=== PATIENT | male | born 1995 | race Hispanic/Latino ===

== ENCOUNTER 2019-06-27 00:28 | Emergency (ER) | payer SELFPAY ==
[2019-06-27 00:39] VITALS: BP 126/69
== END 2019-06-27 01:30 | disposition left against medical advice (07) ==
LOC: ED 00:28
DX: S01.81XA Laceration without foreign body of other part of head, initial encounter (principal); Z53.21 Procedure and treatment not carried out due to patient leaving prior to being seen by health care provider; W55.29XA Other contact with cow, initial encounter; Y93.89 Activity, other specified; Y92.89 Other specified places as the place of occurrence of the external cause; Y99.8 Other external cause status

== ENCOUNTER 2021-01-09 15:45 | Emergency (ER) | payer OTHER ==
[2021-01-09 15:53] VITALS: BP 146/90
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
== END 2021-01-09 17:49 | disposition home or self-care (01) ==
LOC: ED 15:45
DX: M79.645 Pain in left finger(s) (principal); V89.2XXA Person injured in unspecified motor-vehicle accident, traffic, initial encounter; M54.5 Low back pain; Y93.89 Activity, other specified; Y92.89 Other specified places as the place of occurrence of the external cause; Y99.8 Other external cause status
CPT/HCPCS: 72100; 99283

== ENCOUNTER 2021-03-15 16:09 | Emergency (ER) | payer SELFPAY ==
--- NOTE | 2021-03-15 17:17 | Emergency Department Report ---
ED General Adult HPI - General Chief complaint: Medical Clearance Stated complaint: Medical clearance PUI?: No Time Seen by Provider: 03/15/21 17:09 Source: patient, EMS ( EMS documentation not available at time of chart dictation ), RN notes reviewed, old records reviewed Mode of arrival: Ambulatory Limitations: No Limitations - History of Present Illness Initial comments: The patient is a 25-year-old gentleman. He is not known to myself previously. The patient presents to the ER today for medical clearance. He reports that he was consuming moonshine last night and this morning, and felt like his throat was closing in. This is now resolved. The moonshine is from a home distillery. The patient states that he feels better now. The patient denies all physical complaints at this time. The patient states he is not homicidal or suicidal. The patient is asking to be discharged. Patient denies travel, surgery, imm obilization, leg pain, leg swelling, DVT/PE risk factors -: Sudden Location: mouth Severity scale (0 -10): 0 Consistency: intermittent Improves with: none Worsens with: none Associated Symptoms: denies other symptoms - Related Data Home Medications Medication Instructions Recorded Confirmed Last Taken Dextromethorphan HBr [Cough Relief] 10 ml PO PRN 04/16/13 04/16/13 04/16/13 21:00 Previous Rx's Medication Instructions Recorded Last Taken Type Albuterol Mdi (or & Nicu Only) 2 puff IH QID PRN #1 inh 04/17/13 Unknown Rx [ProAir HFA Inhaler] Azithromycin [Zithromax Z-POOL] 500 mg PO ONCE #6 tablet 04/17/13 Unknown Rx Guaifenesin/Codeine Phosphate 10 ml PO Q4-6H PRN #4 oz 04/17/13 Unknown Rx [Cheratussin AC Syrup] Prednisone 60 mg PO QDAY #9 tablet 04/17/13 Unknown Rx Amoxicillin [Trimox CAP] 500 mg PO Q8H #30 capsule 12/25/13 Unknown Rx Promethazine Dm (Nf) [Phenergan Dm 5 ml PO Q6H PRN #120 ml 12/25/13 Unknown Rx 6.25/15 mg 5 ml] predniSONE [Deltasone] 20 mg PO BID #8 tab 12/25/13 Unknown Rx Naproxen 375 mg PO BID #14 tablet 01/09/21 Unknown Rx methOCARBAMOL [Robaxin TAB] 500 mg PO BID PRN #14 tab 01/09/21 Unknown Rx Allergies Allergy/AdvReac Type Severity Reaction Status Date / Time No Known Allergies Allergy Verified 01/09/21 15:49 ED Review of Systems ROS: Stated complaint: alcohol Other details as noted in HPI Comment: All other systems reviewed and negative (Patient denies all symptoms at this time.) ED Past Medical Hx - Past Medical History Previous Medical History?: No - Surgical History Past Surgical History?: No - Social History Smoking Status: Never Smoker Substance Use Type: Alcohol - Medications Home Medications: Home Medications Medication Instructions Recorded Confirmed Last Taken Type Dextromethorphan HBr [Cough Relief] 10 ml PO PRN 04/16/13 04/16/13 04/16/13 21:00 History Albuterol Mdi (or & Nicu Only) 2 puff IH QID PRN #1 inh 04/17/13 Unknown Rx [ProAir HFA Inhaler] Azithromycin [Zithromax Z-POOL] 500 mg PO ONCE #6 tablet 04/17/13 Unknown Rx Guaifenesin/Codeine Phosphate 10 ml PO Q4-6H PRN #4 oz 04/17/13 Unknown Rx [Cheratussin AC Syrup] Prednisone 60 mg PO QDAY #9 tablet 04/17/13 Unknown Rx Amoxicillin [Trimox CAP] 500 mg PO Q8H #30 capsule 12/25/13 Unknown Rx Promethazine Dm (Nf) [Phenergan Dm 5 ml PO Q6H PRN #120 ml 12/25/13 Unknown Rx 6.25/15 mg 5 ml] predniSONE [Deltasone] 20 mg PO BID #8 tab 12/25/13 Unknown Rx Naproxen 375 mg PO BID #14 tablet 01/09/21 Unknown Rx methOCARBAMOL [Robaxin TAB] 500 mg PO BID PRN #14 tab 01/09/21 Unknown Rx ED Physical Exam - General Limitations: No Limitations General appearance: alert, in no apparent distress - Head Head exam: Present: atraumatic, normocephalic - Eye Eye exam: Present: normal appearance, EOMI. Absent: nystagmus - ENT ENT exam: Present: normal exam, normal orophraynx, mucous membranes moist, normal external ear exam - Neck Neck exam: Present: normal inspection, full ROM. Absent: tenderness, meningismus - Respiratory Respiratory exam: Present: normal lung sounds bilaterally. Absent: respiratory distress, wheezes, rales, rhonchi, stridor, decreased breath sounds - Cardiovascular Cardiovascular Exam: Present: regular rate, normal rhythm, normal heart sounds. Absent: bradycardia, tachycardia, irregular rhythm, systolic murmur, diastolic murmur, rubs, gallop - GI/Abdominal GI/Abdominal exam: Present: soft. Absent: distended, tenderness, guarding, rebound, rigid, pulsatile mass - Rectal Rectal exam: Present: deferred - Extremities Exam Extremities exam: Present: normal inspection, full ROM, other (2+ pulses noted in the bilateral upper and lower extremities. There is no palpable cord. negative Homans sign. Muscular compartments are soft. The pelvis is stable.). Absent: pedal edema, calf tenderness - Back Exam Back exam: Present: normal inspection, full ROM. Absent: tenderness, CVA tenderness (R), CVA tenderness (L), paraspinal tenderness, vertebral tenderness - Neurological Exam Neurological exam: Present: alert, oriented X3, normal gait, other (No facial droop. Tongue midline. Extraocular movements intact bilaterally. Facial sensation intact to light touch in V1, V2, V3 distribution bilaterally. 5 and a 5 strength in 4 extremities. Sensation intact to light touch in 4 ex tremities.). Absent: motor sensory deficit - Psychiatric Psychiatric exam: Present: normal affect, normal mood. Absent: homicidal ideation, suicidal ideation - Skin Skin exam: Present: warm, dry, intact, normal color. Absent: rash ED Course Vital Signs 03/15/21 03/15/21 16:10 17:23 Temperature 98.2 F Pulse Rate 82 89 Respiratory 16 20 Rate Blood Pressure 152/84 140/89 [Right] O2 Sat by Pulse 98 98 Oximetry ED Medical Decision Making - Lab Data Vital Signs 03/15/21 03/15/21 16:10 17:23 Temperature 98.2 F Pulse Rate 82 89 Respiratory 16 20 Rate Blood Pressure 152/84 140/89 [Right] O2 Sat by Pulse 98 98 Oximetry Lab Results 03/15/21 Range/Units 16:12 POC Glucose 138 H (70-105) mg/dL - EKG Data -: EKG Interpreted by Nv EKG shows normal: sinus rhythm - EKG Data When compared to previous EKG there are: previous EKG unavailable 03/15/21 19:47 The EKG is interpreted by myself at 17: 31 Sinus rhythm, rate 95 bpm. There is a borderline rightward axis deviation, with a normal P wave axis. The QTC is 438 ms. There is motion artifact. There is no prior EKG available for comparison. This is an abnormal EKG. This is not a STEMI. - Radiology Data Radiology results: report reviewed, image reviewed CHEST 2 VIEWS INDICATION / CLINICAL INFORMATION: dyspnea. FINDINGS: SUPPORT DEVICES: None. HEART / MEDIASTINUM: No significant abnormality. LUNGS / PLEURA: No significant pulmonary or pleural abnormality. No pneumothorax. ADDITIONAL FINDINGS: No significant additional findings. IMPRESSION: 1. No acute findings. Signer Name: Nikolas Lopez MD Signed: 03/15/2021 6:55 PM Workstation Name: [id number] - Medical Decision Making Differential diagnosis, including but not limited to: Encounter for medical screening examination history of cough, history of alcohol consumption Assessment and plan: 25-year-old gentleman, who is afebrile, with reassuring vital signs, who is clinically sober, with a GCS of 15, with patent intact airway, without stridor, supple nontender neck, clear lung sounds, unremarkable chest x-ray, unremarkable EKG (right axis deviation is appreciated, patient not currently tachycardic, tachypneic or hypoxic, denies DVT/PE risk factors, is low risk by Wells criteria, and is PERC negative), who does not appear to be in any acute distress, and as per history and physical, does not appear to have an emergent medical condition present at this time. Patient observed in this department for hours without clinical decompensation. Patient counseled to abstain from moonshine consumption, given risk for lead toxicity. He reports that he only consumes moonshine sporadically. He has been observed in this department for hours without clinical decompensation or evidence of airway compromise, and he is suitable for discharge with outpatient follow-up Critical care attestation.: If time is entered above; I have spent that time in minutes in the direct care of this critically ill patient, excluding procedure time. ED Disposition Clinical Impression: Encounter for medical screening examination, History of dyspnea Disposition: HOME / SELF CARE / HOMELESS Is pt being admited?: No Does the pt Need Aspirin: No Condition: Good Additional Instructions: Recommend that the patient abstain from moonshine/alcohol consumption. Consumption of moonshine from a back yard to distillery places patient at risk for lead toxicity. Please follow-up with a primary care doctor within the next 2 weeks. Please return to the emergency room right away with new pain, worsened pain, migration of pain, projectile vomiting, change in mental status, confusion, inability tolerate liquid feeds, new, worsened or different symptoms not present on the initial emergency room evaluation. Referrals: [facility] [Provider Group] - 3-5 Days
[2021-03-15 17:26] VITALS: BP 140/89
--- NOTE | 2021-03-15 19:59 | XRay Report ---
CHEST 2 VIEWS INDICATION / CLINICAL INFORMATION: dyspnea. FINDINGS: SUPPORT DEVICES: None. HEART / MEDIASTINUM: No significant abnormality. LUNGS / PLEURA: No significant pulmonary or pleural abnormality. No pneumothorax. ADDITIONAL FINDINGS: No significant additional findings. IMPRESSION: 1. No acute findings. Signer Name: Nikolas Lopez MD Signed: 03/15/2021 7:55 PM Workstation Name: [id number]
== END 2021-03-15 20:59 | disposition home or self-care (01) ==
LOC: ED 16:09
DX: Z00.00 Encounter for general adult medical examination without abnormal findings (principal); R06.00 Dyspnea, unspecified
CPT/HCPCS: 71046; 82962; 93005; 99284